=== PATIENT | male | born 1990 | race Caucasian/White ===

== ENCOUNTER 2017-02-16 20:06 | Inpatient (IN) | payer BC ==
[~2017-02-16] VITALS: Ht 182.9 cm; Wt 128.5 kg
--- NOTE | 2017-02-16 20:11 | NUR ---
PT IS 27 Y/O MALE BIB FAMILY C/O ABDOMINAL PAIN THAT IS EXCRUCIATING SHARP DIFFUSE PAIN. PT PLACED ON MONITOR. SKIN WARM AND DRY, RESPIRATIONS EVEN AND NONLABORED. AWAITING ORDERS FROM PROVIDERS.
--- NOTE | 2017-02-16 20:15 | NUR ---
18G RAC STARTED WITH IV BOLUS. BLOOD SAMPLE OBTAINED AND SENT TO LAB.
[2017-02-16] MEDS ORDERED: ONDANSETRON 4 MG TAB.RAPDIS PO ONE (20:30)
[2017-02-16] MEDS ORDERED: IV NS 0.9% 1,000 ML BAG IV ONE (20:30)
[2017-02-16] MEDS ORDERED: ONDANSETRON HCL/PF 4 MG/2 ML VIAL ONE (20:35)
[2017-02-16 20:48] LABS: BASOPHILS % (AUTO) 0.5 % (0.0-2.0); EOSINOPHILS % (AUTO) 0.1 % (0.0-6.0); HEMATOCRIT 45 % (39-51); HEMOGLOBIN 15.3 g/dL (13.5-17.5); LYMPHOCYTES # (AUTO) 0.7 /CMM (0.8-4.8); LYMPHOCYTES % (AUTO) 8.7 % (20.0-44.0); MEAN CORPUSCULAR HEMOGLOBIN 30 PG (26.0-33.0); MEAN CORPUSCULAR HGB CONC 34 g/dl (31.0-36.0); MEAN CORPUSCULAR VOLUME 88 fL (80-96); MONOCYTES # (AUTO) 0.5 /CMM (0.1-1.30); MONOCYTES % (AUTO) 6.4 % (2.0-12.0); NEUTROPHILS % (AUTO) 84.3 % (43.0-81.0); PLATELET COUNT (AUTO) 317 /CMM (150-450); RDW COEFFICIENT OF VARIATION 12.3 (11.5-15.0); RED BLOOD CELL COUNT(AUTO) 5.16 MIL/uL (4.5-6.0); WHITE BLOOD COUNT (AUTO) 8.2 K/uL (4.3-11.0)
[2017-02-16 20:55] LABS: APPEARANCE,URINE Clear (CLEAR); BILIRUBIN,URINE MODERATE (NEGATIVE); BLOOD, URINE Negative Ery/uL (NEGATIVE); COLOR,URINE Yellow (YELLOW); KETONES,URINE 15 (NEGATIVE); LEUKOCYTE ESTERASE ,URINE Negative (NEGATIVE); NITRITE, URINE Negative (NEGATIVE); PROTEIN,URINE 30 mg/dl (NEGATIVE); UGLUCOSE 100 MG/DL mg/dL (NEGATIVE); UROBILINOGEN,URINE >=8.0 EU/dL (0.2)
[2017-02-16 20:57] LABS: CREATININE 0.9 mg/dL (0.6-1.3)
[2017-02-16 21:03] LABS: BILIRUBIN,DIRECT 1.2 mg/dL (0.0-0.2); TOTAL PROTEIN, SERUM 7.3 g/dL (6.4-8.2)
[2017-02-16 21:11] LABS: BACTERIA,URINE Few /HPF (None Seen); MUCUS,URINE Many /LPF (None Seen); RBC,URINE 0-2 /HPF (0-2); SQUAMOUS EPITHELIAL CELL,UR Few /HPF (None Seen)
[2017-02-16] MEDS ORDERED: ONDANSETRON HCL/PF - ER 4 MG/2 ML VIAL IV ONE (21:30)
--- NOTE | 2017-02-16 21:50 | NUR ---
CALLED DR CHARANJIT EUGENE FOR PANEL ADMISSION
[2017-02-16] MEDS ORDERED: KETOROLAC TROMETHAMINE INJ 30 MG/ML VIAL IV ONE (22:00)
--- NOTE | 2017-02-16 22:00 | NUR ---
CALLED NURSING DERMATOLOGY PROCEDURAL PHYSICIAN FOR M/S BED
[2017-02-16] MEDS ORDERED: KETOROLAC TROMETHAMINE INJ 30 MG/ML VIAL ONE (22:21)
--- NOTE | 2017-02-16 22:25 | NUR ---
US TECH AT BEDSIDE
--- NOTE | 2017-02-16 22:50 | NUR ---
US TECH LEFT BEDSIDE. AWAITING RESULTS.
--- NOTE | 2017-02-16 23:01 | NUR ---
REPORT GIVEN TO [facility] FOR [facility]
--- NOTE | 2017-02-16 23:17 | NUR ---
DR MEAD AT BED SIDE FOR EVAL
--- NOTE | 2017-02-16 23:20 | NUR ---
PT TRANSPORTED TO [facility] BED BY TRANSPOR
[2017-02-16 23:32] VITALS: BP 110/68
--- NOTE | 2017-02-16 23:32 | NUR ---
RECEIVED NEW ADMISSION FROM ER WITH DX OF POSSIBLE BILIARY COLIC, ALERT AND ORIENTED X4, CALM, ABLE TO VERBALIZE NEEDS, WITH HX OF GASTRIC BYPASS, NO OTHER MEDICAL HISTORY. LUNG SOUNDS ARE CLEAR, ABDOMEN IS TENDER TO TOUCH, RIGHT AC #18 PERIPHERAL LINE IS PATENT AND INTACT. GENERAL SKIN CONDITION IS INTACT. ABLE TO AMBULATE WITH STEADY GAIT. ORIENTED TO ROOM AND USE OF CALL LIGHT. FATHER AND GIRL FRIEND AT THE BEDSIDE. RT KHADIJAH CAME IN AND EXPLAINED TO PATIENT ABOUT CT OF ABDOMEN AND PELVIS AND TO DRINK THE GASTROGRAFIN ELIXIR.
[2017-02-16] MEDS ORDERED: DIATR MEGLU/DIATRIZOATE SODIUM 30 ML BOTTLE (GASTROGRAPHIN) ONE (23:37)
[2017-02-16] MEDS ORDERED: IV D5/0.45 NACL 1,000 ML IV PRN (23:44)
[2017-02-16 23:56] VITALS: BP 110/68
[2017-02-17] MEDS ORDERED: KETOROLAC TROMETHAMINE INJ 30 MG/ML VIAL IV PRN
[2017-02-17] MEDS ORDERED: ONDANSETRON HCL/PF 4 MG/2 ML VIAL IVP PRN
[2017-02-17] MEDS ORDERED: PIPERACILLIN /TAZOBACTAM 2.25 G VIAL IV ONE (00:55)
--- NOTE | 2017-02-17 01:39 | NUR ---
PATIENT TAKEN FOR CT SCAN
[2017-02-17] MEDS: PIPERACILLIN /TAZOBACTAM 4.5 G in IV D5W 50 ML IV SCH ×2 (02:10→05:00)
--- NOTE | 2017-02-17 02:21 | NUR ---
ZOSYN IVP DELAYED SECONDARY TO ATB TO BE MIXED AND PATIENT TAKEN TO CT SCAN
--- NOTE | 2017-02-17 06:26 | NUR ---
ZOSYN 4.5 G IVP NOT GIVEN, LAST ADMINISTRATION WAS 0210, ONLY BEEN 4 HOURS.
--- NOTE | 2017-02-17 06:32 | NUR ---
PATIENT IN BED, ALERT AND AWAKE, NO SOB, NO RESPIRATORY DISTRESS, NO COMPLAIN OF PAIN AT THIS TIME, NO VOMITING, NO CHANGE OF CONDITION DURING SHIFT, NEEDS ATTENDED, GIRLFRIEND AT THE BEDSIDE.
[2017-02-17 06:41] LABS: BASOPHILS % (AUTO) 0.4 % (0.0-2.0); EOSINOPHILS # (AUTO) 0.1 /CMM (0.0-0.7); EOSINOPHILS % (AUTO) 2.2 % (0.0-6.0); HEMATOCRIT 40 % (39-51); HEMOGLOBIN 13.7 g/dL (13.5-17.5); LYMPHOCYTES # (AUTO) 2.2 /CMM (0.8-4.8); LYMPHOCYTES % (AUTO) 40.5 % (20.0-44.0); MEAN CORPUSCULAR HEMOGLOBIN 31 PG (26.0-33.0); MEAN CORPUSCULAR HGB CONC 35 g/dl (31.0-36.0); MEAN CORPUSCULAR VOLUME 88 fL (80-96); MONOCYTES # (AUTO) 0.7 /CMM (0.1-1.30); MONOCYTES % (AUTO) 13.6 % (2.0-12.0); NEUTROPHILS # (AUTO) 2.4 /CMM (1.8-8.9); NEUTROPHILS % (AUTO) 43.3 % (43.0-81.0); PLATELET COUNT (AUTO) 255 /CMM (150-450); RDW COEFFICIENT OF VARIATION 12.9 (11.5-15.0); RED BLOOD CELL COUNT(AUTO) 4.47 MIL/uL (4.5-6.0); WHITE BLOOD COUNT (AUTO) 5.5 K/uL (4.3-11.0)
[2017-02-17 06:59] LABS: CREATININE 0.8 mg/dL (0.6-1.3); MAGNESIUM 1.8 mg/dL (1.8-2.4); PHOSPHORUS 4.2 mg/dL (2.5-4.9); POTASSIUM 3.8 mmol/L (3.5-5.1)
[2017-02-17 07:08] LABS: THYROID STIMULATING HORMONE 0.991 uIU/mL (0.358-3.74)
--- NOTE | 2017-02-17 07:15 | NUR ---
RN NOTES RECEIVED PT IN BED WITH GIRLFRIEND PRESENT. PT IS ALERT AND AWAKE, NO SIGNS OF SOB OR PAIN. SAFETY MEASURES ARE IN PLACE. WILL CONTINUE TO MONITOR
[2017-02-17 08:00] VITALS: BP 106/54
[2017-02-17 08:30] VITALS: BP 97/53
[2017-02-17] MEDS ORDERED: PANTOPRAZOLE 40 MG VIAL IV SCH (09:00)
[2017-02-17 11:02] LABS: ALBUMIN 3.3 g/dL (3.4-5.0); BILIRUBIN,DIRECT 0.6 mg/dL (0.0-0.2); BILIRUBIN,TOTAL 1.8 mg/dL (0.2-1.0); TOTAL PROTEIN, SERUM 6.2 g/dL (6.4-8.2)
[2017-02-17] MEDS ORDERED: PIPERACILLIN /TAZOBACTAM 3.375 G in IV D5W 50 ML IV SCH (12:00)
--- NOTE | 2017-02-17 13:04 | NUR ---
PT WAS DISCHARGED BY PRIVATE CAR. PT IS STABLE, NO SOB, COMPLAINTS OF PAIN, OR SIGNS OF DISTRESS. IV WAS REMOVED AND ALL MEDICATIONS WERE GIVEN ORDERED. AUTHORIZATION NURSE WAS NOTIFIED OF DISCHARGE AND WAS TOLD HE WOULD FOLLOW UP WITH PT TOMORROW. PT WAS EDUCATED OF DISCHARGE AND TOLD TO FOLLOW UP WITH PRIMARY CARE PHYSICIAN WITHIN 1 WEEK. PT HAS APPOINTMENT MADE WITH DR. NELSON IN FEBRUARY FOR FOLLOW UP WELL. Addendum: 02/17/17 at 1316 by MARY KISER RN PT WAS NOT DISCHARGED. NOTE PUT IN WRONG PATIENTS DISCHARGE. DISREGARD NOTE.
--- NOTE | 2017-02-17 16:45 | NUR ---
PT WAS INFORMED BY DR. MEJIA OVER THE PHONE OF HIS ABNORMAL LAB VALUES AND HIS RECOMMENDATION TO STAY FOR SURGERY. PT DECIDED TO GET A SECOND OPINION FROM HIS PRIMARY CARE PHYSICIAN. PT LEFT AGAINST MEDICAL ADVICE. BOTH DR. DONOHUE AND DR. MEJIA WERE INFORMED OF HIS DECISION. AMA FORM AND BELONGINGS LIST WERE SIGNED AND PUT INTO THE CHART.
== END 2017-02-17 16:45 | disposition left against medical advice (07) | DRG 446 ==
LOC: ER 20:06 → MED 22:55
DX: K80.42 Calculus of bile duct with acute cholecystitis without obstruction (principal); E66.9 Obesity, unspecified; Z68.38 Body mass index [BMI] 38.0-38.9, adult; Z98.84 Bariatric surgery status; R74.0 Nonspecific elevation of levels of transaminase and lactic acid dehydrogenase [LDH]; E80.6 Other disorders of bilirubin metabolism
CPT/HCPCS: 36415; 72128-TC; 76705-TC; 80048-TC; 80061-TC; 80076-TC; 81000-TC; 83690-TC; 83735-TC; 84100-TC; 84443-TC; 85025-TC; 87081-TC; A4606; C9113; J1885; J2405; J2543; J3490; J7030; J7060; Q9963; Z7610